=== PATIENT | female | born 1995 | race Hispanic/Latino ===

== ENCOUNTER 2018-03-21 12:52 | Emergency (ER) | payer BC, OTHER ==
[~2018-03-21] VITALS: Ht 160 cm; Wt 68.0 kg
[2018-03-21] MEDS ORDERED: MECLIZINE HCL25 MG PO (14:18)
[2018-03-21] MEDS ORDERED: ZOFRAN ODT4 MG PO (14:18)
== END 2018-03-21 14:47 | disposition home or self-care (01) ==
LOC: ED 12:52
DX: H83.09 Labyrinthitis, unspecified ear (principal); E86.0 Dehydration; Z79.899 Other long term (current) drug therapy
CPT/HCPCS: 80053; 81001; 84703; 85025; 96361; 96374; 99283; J2405; J7120

== ENCOUNTER 2018-07-19 09:03 | Emergency (ER) | payer BC, OTHER ==
[~2018-07-19] VITALS: Ht 160 cm; Wt 71.7 kg
[~2018-07-19 09:03] MED LIST: MECLIZINE HCL25 MG PO; ZOFRAN ODT4 MG PO
== END 2018-07-19 11:31 | disposition home or self-care (01) ==
LOC: ED 09:03
DX: O20.0 Threatened abortion (principal); Z3A.14 14 weeks gestation of pregnancy
CPT/HCPCS: 76805; 76815; 81001; 84702; 85025; 99284

== ENCOUNTER 2019-01-12 13:34 | Inpatient (IN) | payer BC, OTHER ==
[~2019-01-12] VITALS: Ht 160 cm; Wt 82.0 kg
[2019-01-13] MEDS ORDERED: PRENATAL 19 TA1 EAC1 PO (01:28)
--- NOTE | 2019-01-13 08:26 | PR ---
[facility] [address] [facility] [place], [place] [address] Signed Progress Notes IP Datetime Report Generated by CPN: 01/13/2019 08:26 PROGRESS NOTES: [id number] Impression: Normal progression of labor Procedures: Artificial ROM Plan: Continue present management; Anticipate Vaginal Delivery VITAL SIGNS: [id number] Vital Signs: Reviewed; Within Normal Limits EXAM: [id number] Dilatation: 4.0 Effacement: 60 Station: -3 Uterine Contractions: every 2-5 minutes MEMBRANES: [id number] Membrane Status: Ruptured Amniotic Fluid Color: Clear ROM Note: AROM without difficulty Comments: Comfortable with Epuidural, will check BS's q 2 hours. Fetus A: [id number] FHR Baseline: 135 Variability: Moderate 6-25bpm Accelerations: 15X15 Presentation: Vertex Fetus B: [id number] Signing Physician: Edenilson Davis MD Copies: ~ *Electronically Signed* 01/13/19 08 EDENILSON DAVIS MD PATIENT NAME: ANTHONY HOWE PROGRESS NOTE DATE OF : [birth year] PHYSICIAN: EDENILSON DAVIS MD RPT #: [id number] REPORT IS CONFIDENTIAL AND NOT TO BE RELEASED WITHOUT AUTHORIZATION
--- NOTE | 2019-01-13 13:59 | PR ---
[facility] [address] [facility] [place], [place] [address] Signed Progress Notes IP Datetime Report Generated by CPN: 01/13/2019 13:59 PROGRESS NOTES: [id number] Impression: Normal progression of labor Procedures: Artificial ROM Plan: Continue present management VITAL SIGNS: [id number] Vital Signs: Reviewed; Within Normal Limits EXAM: [id number] Dilatation: 9.5 Effacement: 90 Station: -2 Uterine Contractions: every 2-3 minutes MEMBRANES: [id number] Membrane Status: Ruptured Amniotic Fluid Color: Clear ROM Note: AROM without difficulty Comments: Too numb to push; will decreae Epidural rate. Fetus A: [id number] FHR Baseline: 140 Variability: Moderate 6-25bpm Accelerations: 15X15 Presentation: Vertex Fetus B: [id number] Signing Physician: Edenilson Davis MD Copies: ~ *Electronically Signed* 01/13/19 1359 EDENILSON DAVIS MD PATIENT NAME: ANTHONY HOWE PROGRESS NOTE DATE OF : [birth year] PHYSICIAN: EDENILSON DAVIS MD RPT #: [id number] REPORT IS CONFIDENTIAL AND NOT TO BE RELEASED WITHOUT AUTHORIZATION
--- NOTE | 2019-01-14 12:24 | PR ---
[facility] [address] [facility] [place] [address] Signed PP Progress Notes Datetime Report Generated by CPN: 01/14/2019 12:24 SUBJECTIVE: [id number] Pain: Within normal limits Nausea/Vomiting: Denies Vital Signs: [id number] Vital Signs: Reviewed; Within Normal Limits Notable Details: PP Hgb/Hct = 9.5/28.9 EXAM: [id number] Abdomen/Uterus: Normal Lochia: Normal Extremities: Normal IMPRESSION/PLAN/PROCEDURES: [id number] Impression: Normal progression Plan: Continue present management Procedures: None Progress Notes: Doing well, without complaint Signing Physician: Edenilson Davis MD Copies: ~ *Electronically Signed* 01/14/19 1224 EDENILSON DAVIS MD PATIENT NAME: ANTHONY HOWE PROGRESS NOTE DATE OF : 94 PHYSICIAN: EDENILSON DAVIS MD RPT #: [id number] REPORT IS CONFIDENTIAL AND NOT TO BE RELEASED WITHOUT AUTHORIZATION
--- NOTE | 2019-01-15 08:56 | PR ---
[facility] [address] [facility] [place] [address] Signed PP Progress Notes Datetime Report Generated by CPN: 01/15/2019 08:56 SUBJECTIVE: [id number] Pain: Within normal limits Nausea/Vomiting: Denies Vital Signs: [id number] Vital Signs: Reviewed; Within Normal Limits Notable Details: PP Hgb/Hct = 9.5/28.9 EXAM: [id number] Abdomen/Uterus: Normal Lochia: Normal Extremities: Normal IMPRESSION/PLAN/PROCEDURES: [id number] Impression: Normal progression Plan: Discharge Procedures: None Progress Notes: Doing well, ready to go home. Signing Physician: Edenilson Davis MD Copies: ~ *Electronically Signed* 01/15/19 0856 EDENILSON DAVIS MD PATIENT NAME: ANTHONY HOWE PROGRESS NOTE DATE OF : [birth year] PHYSICIAN: EDENILSON DAVIS MD RPT #: [id number] REPORT IS CONFIDENTIAL AND NOT TO BE RELEASED WITHOUT AUTHORIZATION
== END 2019-01-15 12:30 | disposition home or self-care (01) | DRG 807 ==
LOC: FBC 01-13 00:03
PROVIDERS: ADMIT General Practice
PROC: 10E0XZZ Delivery of Products of Conception, External Approach (ICD-10-PCS; principal; 2019-01-13)
PROC: 0HQ9XZZ Repair Perineum Skin, External Approach (ICD-10-PCS; 2019-01-13)
PROC: 3E0P7VZ Introduction of Hormone into Female Reproductive, Via Natural or Artificial Opening (ICD-10-PCS; 2019-01-13)
PROC: 10907ZC Drainage of Amniotic Fluid, Therapeutic from Products of Conception, Via Natural or Artificial Opening (ICD-10-PCS; 2019-01-13)
PROC: 00HU33Z Insertion of Infusion Device into Spinal Canal, Percutaneous Approach (ICD-10-PCS; 2019-01-13)
PROC: 3E0R3BZ Introduction of Anesthetic Agent into Spinal Canal, Percutaneous Approach (ICD-10-PCS; 2019-01-13)
DX: O24.420 Gestational diabetes mellitus in childbirth, diet controlled (principal); Z37.0 Single live birth; Z3A.40 40 weeks gestation of pregnancy; O69.81X0 Labor and delivery complicated by cord around neck, without compression, not applicable or unspecified; O70.0 First degree perineal laceration during delivery
CPT/HCPCS: 01960; 36415; 82565; 84450; 84520; 84550; 85025; 85027; J1815; J2590; J7120